=== PATIENT | female | born 1985 | race African-American/Black ===

== ENCOUNTER 2019-07-11 17:05 | Emergency (ER) | payer BC ==
[~2019-07-11] VITALS: Ht 160 cm; Wt 68.2 kg
[2019-07-11 17:06] VITALS: Ht 160 cm; Wt 68.2 kg
[2019-07-11 17:36] LABS: BASOPHILS 0.1 % (0-2); EOSINOPHILS 0.3 % (0-7); HEMATOCRIT 34.5 % (36.0-48.0); HEMOGLOBIN 11.8 g/dL (12-16); IMMATURE GRANULOCYTES 0.1 % (0-5); LYMPHOCYTES 13.4 % (15-50); MCH 29.8 pg (26.0-34.0); MCHC 34.2 g/dL (31.0-37.0); MCV 87.1 fL (80.0-100.0); MEAN PLATELET VOLUME 9.8 fL (7.4-10.4); MONOCYTES 1.3 % (2-11); NEUTROPHILS 84.8 % (40-80); PLATELET COUNT 265 10x3/uL (130-400); RBC 3.96 10x6/uL (4.00-5.40); RDW 13.5 % (11.5-14.5); WBC 7.5 10x3/uL (4.8-10.8)
[2019-07-11 17:58] LABS: APPEARANCE HAZY (CLEAR); BILIRUBIN NEGATIVE (NEGATIVE); COLOR YELLOW (YELLOW); GLUCOSE NEGATIVE (NEGATIVE); KETONE NEGATIVE (NEGATIVE); NITRITE NEGATIVE (NEGATIVE); PROTEIN 1+ mg/dL (NEGATIVE); SPECIFIC GRAVITY 1.015 (1.005-1.020); UROBILINOGEN NORMAL (NORMAL)
[2019-07-11 17:59] LABS: BACTERIA MODERATE /hpf (NEGATIVE); EPITHELIAL CELLS 0-5 /hpf (0-5); RED CELLS - URINE OCC /hpf (0-5); WHITE CELLS - URINE >50 /hpf (NEGATIVE)
[2019-07-11 18:01] LABS: ANION GAP 14.2 mmol/L (8-16); CALCIUM 8.7 mg/dL (8.5-10.1); CARBON DIOXIDE 26.1 mmol/L (21.0-32.0); POTASSIUM - SERUM 3.3 mmol/L (3.5-5.1)
[2019-07-11 18:05] LABS: HCG URINE NEGATIVE (NEGATIVE)
[2019-07-11 18:07] LABS: ALBUMIN 3.8 g/dL (3.4-5.0); BILIRUBIN - TOTAL 0.67 mg/dL (0.2-1.3); PROTEIN - SERUM 7.9 g/dL (6.4-8.2)
[2019-07-11] MEDS ORDERED: KEFLEX500 MG PO (19:29)
[2019-07-11] MEDS ORDERED: MACROBID100 MG PO (19:29)
[2019-07-11] MEDS ORDERED: DIFLUCAN150 MG PO (19:40)
[2019-07-11 20:17] VITALS: BP 114/71
== END 2019-07-11 20:18 | disposition home or self-care (01) ==
LOC: D.ER 17:05
PROVIDERS: Family Medicine
DX: N39.0 Urinary tract infection, site not specified (principal)